=== PATIENT | female | born 1930 | race Caucasian/White ===

== ENCOUNTER 2017-01-01 22:01 | Inpatient (IN) | payer MEDICARE, OTHER ==
[~2017-01-01] VITALS: Ht 142.2 cm; Wt 36.9 kg
[2017-01-04] MEDS ORDERED: CELEXA10 MG PO (16:12)
[2017-01-04] MEDS ORDERED: ASPIRIN EC81 MG PO (16:12)
[2017-01-04] MEDS ORDERED: ELIQUIS2.5 MG PO (16:12)
[2017-01-04] MEDS ORDERED: COREG DPS6.25 MG PO (16:12)
[2017-01-04] MEDS ORDERED: PROTONIX40 MG PO (16:13)
[2017-01-04] MEDS ORDERED: IMDUR DPS30 MG PO (16:13)
[2017-01-04] MEDS ORDERED: ZESTRIL DPS2.5 MG PO (16:13)
[2017-01-04] MEDS ORDERED: CRESTOR10 MG PO (16:13)
[2017-01-04] MEDS ORDERED: XALATAN2.5 ML OU (16:13)
[2017-01-04] MEDS ORDERED: ANORO ELLIPTA 62.1 - IH (16:14)
[2017-01-04] MEDS ORDERED: DELTASONE DPS20 MG PO (16:14)
--- NOTE | 2017-01-11 09:48 | HP ---
ADMIT: 01/01/2017 RM/LOC: 410 [facility] MR#: [id number] ACC#: [id number] [address] [facility] [address] [place], [place] [address] TORY MAIER [address] [place], [place] [id number] History and Physical SEX: F AGE: 86 : 1930 DATE OF SERVICE: CHIEF COMPLAINT: Dyspnea and dizziness. HISTORY OF PRESENT ILLNESS: Ms. Maier is a very poor historian. Apparently, two weeks ago while in [place], she had some kind of an episode where she maybe felt a little dizzy or short of breath. It is unclear what exactly her symptoms were at that time. She was taken to [facility]. I do not have those records in front of me, but it sounds as if they did a pretty extensive workup and per the daughter, she was diagnosed with "broken heart." It is noted that she had a positive troponin at that time, maybe had a heart catheterization, had blockages noted between 30% and 50%. Otherwise, the patient was feeling fine and then yesterday, had another episode where she felt kind of dizzy and short of breath. Daughter notes that she normally lives by herself and the daughter had showed up yesterday. Apparently, her mom had kind of forgotten that she was even coming. She was sitting in her night gown in the living room. Notes that they had a nice day yesterday and then last night, the patient had these symptoms, they did not resolve after about 5 minutes and therefore, they brought her into the ER. She has a son who was with her on both episodes and he felt the symptoms were very similar. Otherwise, she denies any other new or different complaints. The daughter has a lot of concerns that her mom does not eat very much and really had not eaten much yesterday either. PAST MEDICAL HISTORY: Significant for: 1. Parkinson's. 2. COPD. 3. Anxiety. 4. Depression. 5. Hypertension. 6. Osteoporosis. 7. Possible diagnosis of coronary artery disease based on her recent stay at the [facility]. ALLERGIES: JOHN INHIBITORS, LIPITOR, CELEXA, ERYTHROMYCIN, FLOVENT, AND ZITHROMAX. MEDICATIONS: Currently are: 1. Eliquis 5 mg p.o. b.i.d. 2. Coreg 3.125 p.o. b.i.d. 3. Aspirin 81 mg p.o. daily. 4. Celexa 20 mg p.o. daily. 5. Isosorbide mononitrate 30 mg p.o. daily. 6. Latanoprost eye drops. 7. Lisinopril 2.5 p.o. daily. 8. Protonix 40 mg p.o. daily. 9. Crestor 10 mg p.o. at bedtime. 10.Anoro Ellipta daily. ADMIT: 01/01/2017 RM/LOC: 410 [facility] MR#: [id number] [address] [place] [id number] [facility] [address] [place] [address] History and Physical SEX: F AGE: 86 : 1930 FAMILY HISTORY: Relatively noncontributory. SOCIAL HISTORY: She does continue to smoke a pack a day. Does not use any significant alcohol. REVIEW OF SYSTEMS: Obtained, was otherwise essentially negative. PHYSICAL EXAMINATION: GENERAL: She seems very forgetful. She is in no apparent distress. HEENT: Pupils are equal, round, and reactive. Oropharynx has dry mucous membranes. NECK: Supple. HEART: Very distant, but it is a normal rate with a regular rhythm. LUNGS: Diminished breath sounds bilaterally. ABDOMEN: Soft. Bowel sounds are present. EXTREMITIES: Have no evidence of edema. ASSESSMENT AND PLAN: 1. Dyspnea with dizziness episodes with positive troponin I. At this time, we will ask Cardiology to come back but unfortunately, I do not have any records of her stay in [facility]. 2. Chronic obstructive pulmonary disease with ongoing nicotine dependence. 3. Possible malnutrition. 4. Depression. 5. Anxiety. 6. Hypertension. 7. History of Parkinson's. At this time, we will go ahead and continue her home medications. Ask Cardiology to see. Check serial cardiac enzymes. Check a pre-albumin. We will taper her off her steroids and ask Nutrition to see. I did spend 40 minutes in the evaluation and treatment of this patient. Edyta Carrillo MD/ mary lou JOB #: [id number] CC: Renan Roa, Attending Physician Renan Roa, Family Physician
--- NOTE | 2017-01-11 12:58 | DS ---
ADMIT: 01/01/2017 RM/LOC: 410 [facility] MR#: [id number] ACC#: [id number] [address] [facility] [address] [place], [place] [address] TORY IQBAL [address] [place] [address] General Discharge Summary SEX: F AGE: 86 : 1930 ADMISSION DATE: 01/01/2017 DISCHARGE DATE: 01/03/2017 FINAL DIAGNOSES: 1. Shortness of breath. 2. Chest pain. 3. Tobacco use. 4. Coronary artery disease. 5. Chronic obstructive pulmonary disease. 6. Paroxysmal atrial fibrillation. 7. History of Takotsubo syndrome. REASON FOR ADMISSION: This is an 86-year-old female, presented with shortness of breath, has history of coronary artery disease and COPD. See H and P for further details. HOSPITAL COURSE: The patient was admitted. Elevated troponin and was seen by Cardiology, was treated for COPD as well. After evaluation, they felt like she probably did not need heart cath. She was feeling very well by the 3rd. They thought she could increase her carvedilol and be discharged to home. She was started on carvedilol dose on the day of discharge. Blood pressures were followed until afternoon and they were okay, so then she was discharged to home. DISCHARGE MEDICATIONS: 1. Aspirin 81 mg daily. 2. Celexa 20 mg daily. 3. Coreg 6.25 mg b.i.d. 4. Crestor 10 mg at bedtime. 5. Imdur 30 mg daily. 6. Protonix 40 mg daily. 7. Zestril 2.5 mg daily. 8. Anoro Ellipta inhaler one b.i.d. 9. Xalatan eyedrops one drop both eyes at bedtime. 10.Eliquis 2.5 b.i.d. 11.Prednisone 40 mg daily for 5 days. Follow up with me in 1 to 2 weeks. Renan Roa MD/ mary lou JOB #: [id number] CC: Renan Roa MD, Attending Physician Renan Roa MD, Family Physician
--- NOTE | 2017-01-29 21:25 | ER ---
ADMIT: 01/01/2017 RM/LOC: ER [facility] MR#: [id number] [address] [address] TORY IQBAL [address] [place] [address] Emergency Room Report SEX: F AGE: 86 : 1930 DATE: 01/01/2017 HISTORY OF PRESENT ILLNESS: This is an 86-year-old female who comes to the Emergency Department with squad after experiencing weakness and shortness of breath times past several hours. She states she had a similar event two months ago when she was in [place] and was hospitalized and had a cardiac catheterization. She denied any chest pain. Shortness of breath came up suddenly. Denied any nausea, vomiting, or diaphoresis. PAST MEDICAL HISTORY: Emphysema, hypertension, and coronary artery disease. She states that the catheterization apparently showed 30% to 50% blockage in some of her coronary arteries. PHYSICAL EXAMINATION: GENERAL: Reveals a cachectic, ill-appearing 86-year- old female, but she is in no distress. Anxious. HEENT: Normocephalic. LUNGS: Diminished breath sounds throughout with prolonged expiration. CARDIOVASCULAR: Regular rate and rhythm. No murmurs, rubs, or gallops. ABDOMEN: Soft. EXTREMITIES: Unremarkable. Chest x-ray revealed chronic emphysematous changes. EKG, no acute changes. The cardiac markers were negative. CBC was within normal parameters. Electrolytes were essentially within normal parameters. An ABG on room air revealed pH 7.39, pCO2 of 43.3, PO2 of 70, and 94%. The patient was being admitted to rule out subjective shortness of breath. Ivan Arvizu MD/ mary lou JOB #: [id number] CC: Rich Burton MD, Attending Physician
--- NOTE | 2017-02-07 14:57 | CO ---
ADMIT: 01/01/2017 RM/LOC: 410 [facility] MR#: [id number] [address] [address] TORY MAIER [address] [place] [address] Consultation SEX: F AGE: 86 : 1930 DATE OF CONSULTATION: 01/02/2017 ATTENDING PHYSICIAN: Renan Roa CONSULTING PHYSICIAN: Roger Tracy MD REASON FOR CONSULTATION: Abnormal troponin, shortness of breath. HISTORY OF PRESENT ILLNESS: We were asked to consult on Ms. Maier at the request of Dr. Carrillo for the problem of abnormal troponin and shortness of breath. She is an 86-year-old white female, who at rest yesterday noted more dyspnea. She said she had an episode like this last month. She was actually evaluated at the [facility] with cardiac catheterization and echocardiogram. EKG at that time noted atrial fibrillation with RVR. She has been started on Eliquis. Cardiac cath yielded nonobstructive coronary disease and presumed Takotsubo cardiomyopathy on echocardiogram. She notes that she has been active since she has been home, trying to do some exercises. No change in symptoms while doing this. This occurred yesterday while she was at rest. It was random and not provoked. She denies any near syncope. She did have a little bit of lightheadedness though in retrospect, she denies any chest pressure, just shortness of breath. She denies any weight gain or weight loss, fevers, chills, cough, or cold symptoms. PAST MEDICAL HISTORY: Includes: 1. COPD. 2. Coronary artery disease. 3. Cardiomyopathy. 4. Paroxysmal atrial fibrillation. MEDICATIONS: Currently include: 1. Eliquis 5 mg b.i.d. 2. Coreg 3.125 mg b.i.d. 3. Aspirin 81 a day. 4. Celexa 20 a day. 5. Isosorbide 30 mg daily. 6. Latanoprost eye drops. 7. Lisinopril 2.5 mg every day. 8. Protonix 40 mg every day. 9. Crestor 10 mg every night. 10.Anoro Ellipta. ALLERGIES: INCLUDE FORTEO. FAMILY HISTORY: No premature coronary disease to her knowledge. SOCIAL HISTORY: She is , last year. She is a smoker. REVIEW OF SYSTEMS: A full 10-point review of systems was obtained and deemed ADMIT: 01/01/2017 RM/LOC: 410 [facility] MR#: [id number] [address] [address] TORY MAIER [address] [place] [address] Consultation SEX: F AGE: 86 : 1930 to be negative except for the pertinently dictated positives in the HPI. PHYSICAL EXAMINATION: VITAL SIGNS: Today, her blood pressure is 126/65 with a pulse of 75, temp 97.3, and her weight is 79 pounds. GENERAL: She is a malnourished-appearing white female, in no acute distress. She is alert and oriented x3. NECK: Shows brisk carotid upstrokes. No JVD or bruit. CHEST: Clear. HEART: Regular. ABDOMEN: Soft. EXTREMITIES: Show no cyanosis, clubbing, or edema. MUSCULOSKELETAL: Normal. NEUROLOGIC: Normal. SKIN: [place], warm, and dry. LABORATORY AND ANCILLARY DATA: Today EKG shows sinus rhythm with deep T-wave inversions across the lateral leads. Her creatinine is 0.6, potassium is normal. CK is normal. MB is normal. Her troponin went from 0.38 to 0.17. White blood cell count is 10.7 with a hemoglobin of 13.8, and platelet count 306,000. Her chest x-ray shows changes consistent with emphysema. No findings suggestive of heart failure or acute pneumonia. ASSESSMENT AND PLAN: 1. Dyspnea. 2. Abnormal troponin. 3. Coronary artery disease with recent cath in December of 2016 with nonobstructive coronary disease. 4. Takotsubo cardiomyopathy. 5. Tobacco use. 6. Paroxysmal atrial fibrillation. 7. Chronic obstructive pulmonary disease. I did personally review her cath, echo, and EKG. Her EKG is certainly different than her admission in December. T-waves were not deeply inverted across the precordial leads. Uncertain as to the significance of this, but nothing to suggest acute ischemia or infarction. She is maintaining sinus rhythm. We will hold her Eliquis in case she would need a repeat catheterization. We will trend her enzymes, repeat her EKG, and consider limited echocardiogram, but certainly does not sound like acute coronary syndrome at this point in time. Thank you for this consultation. Roger Tracy MD/ mary lou JOB #: [id number] CC: Renan Roa, Attending Physician ADMIT: 01/01/2017 RM/LOC: 410 [facility] MR#: [id number] [address] [place] [id number] RASHEED TORY Janey [address] [place] [address] Consultation SEX: F AGE: 86 : 1930 Renan Roa, Family Physician
[2017-04-17] MEDS ORDERED: KEFLEX-DPS500 MG PO (10:03)
[2017-04-17] MEDS ORDERED: PRESERVISION A1 EACH PO (10:03)
== END 2017-01-03 18:10 | disposition home or self-care (01) | DRG 204 ==
LOC: ER 22:01 → 4PCU 23:36
PROVIDERS: ADMIT Internal Medicine
DX: R06.00 Dyspnea, unspecified (principal); E46 Unspecified protein-calorie malnutrition; G20 Parkinson's disease; I48.0 Paroxysmal atrial fibrillation; J44.9 Chronic obstructive pulmonary disease, unspecified; I10 Essential (primary) hypertension; F32.9 Major depressive disorder, single episode, unspecified; I51.81 Takotsubo syndrome; Z68.1 Body mass index [BMI] 19.9 or less, adult; R07.9 Chest pain, unspecified; R79.89 Other specified abnormal findings of blood chemistry; I25.10 Atherosclerotic heart disease of native coronary artery without angina pectoris; F41.9 Anxiety disorder, unspecified; M81.0 Age-related osteoporosis without current pathological fracture; F17.210 Nicotine dependence, cigarettes, uncomplicated; Z79.82 Long term (current) use of aspirin

== ENCOUNTER 2017-01-23 21:12 | Emergency (ER) | payer MEDICARE, OTHER ==
[~2017-01-23 21:12] MED LIST: ANORO ELLIPTA 62.1 - IH; ASPIRIN EC81 MG PO; CELEXA10 MG PO; COREG DPS6.25 MG PO; CRESTOR10 MG PO; DELTASONE DPS20 MG PO; ELIQUIS2.5 MG PO; IMDUR DPS30 MG PO; PROTONIX40 MG PO; XALATAN2.5 ML OU; ZESTRIL DPS2.5 MG PO
--- NOTE | 2017-01-24 06:53 | ER ---
ADMIT: 01/23/2017 RM/LOC: ER [facility] MR#: [id number] [address] [address] TORY IQBAL [address] [place] [address] Emergency Room Report SEX: F AGE: 86 : 1930 DATE: 01/23/2017 The patient is an 86-year-old female with nonobstructive coronary artery disease, paroxysmal atrial fib with Takotsubo cardiomyopathy. Recent heart cath in December 2016, transported by [facility] due to shortness of breath, treated en route with DuoNeb with improvement. The patient denied any chest pain, fevers, chills, nausea, vomiting, or change in her underlying cough. Exam remarkable for debilitated elderly female with decreased breath sounds, responded well to DuoNeb, aerosol, Solu-Medrol 125 mg IV push, magnesium 2 g IV piggyback and doxycycline 100 mg p.o. in department. Home with doxycycline 100 mg p.o. daily #7, prednisone 40 mg daily x4 days starting tomorrow. Continue home medications. Follow up Dr. Roa this week. Rich Burton MD/ stonel JOB #: [id number] CC: Rich Burton MD, Attending Physician Renan Roa MD, Family Physician Renan Roa MD
[2017-04-17] MEDS ORDERED: PRESERVISION A1 EACH PO (10:03)
[2017-04-17] MEDS ORDERED: KEFLEX-DPS500 MG PO (10:03)
== END 2017-01-24 01:10 | disposition home or self-care (01) ==
LOC: ER 21:12
DX: J44.1 Chronic obstructive pulmonary disease with (acute) exacerbation (principal); I10 Essential (primary) hypertension; F17.210 Nicotine dependence, cigarettes, uncomplicated; Z88.8 Allergy status to other drugs, medicaments and biological substances; Z79.899 Other long term (current) drug therapy

== ENCOUNTER 2017-02-08 19:10 | Emergency (ER) | payer MEDICARE, OTHER ==
--- NOTE | 2017-02-09 19:08 | ER ---
ADMIT: 02/08/2017 RM/LOC: ER [facility] MR#: [id number] ACC#: [id number] [address] [address] TORY IQBAL [address] [place] [address] Emergency Room Report SEX: F AGE: 86 : 1930 DATE: 02/08/2017 HISTORY OF PRESENT ILLNESS: The patient is an 86-year-old female, with past medical history of COPD, came to the ER with chief complaint of increased shortness of breath for the last 45 minutes. The patient has a history of anxiety, hypertension, and coronary artery disease too. The patient is on no home oxygen and still is smoking one-half pack a day. EMERGENCY ROOM COURSE: In the ER, the patient was tachypneic, O2 saturation was in mid 80s per RT before starting BiPAP, the patient was afebrile, blood pressure was stable with a systolic of 105 over 80s. The patient was in mild- to-moderate respiratory distress and was started on BiPAP, on 16/8 with 6 L of oxygen. BiPAP was started and the patient's O2 saturation went to high 90s. The patient received Solu-Medrol in the ER. Chest x-ray did not show any infiltration or acute changes. EKG did not show any ST or T changes or arrhythmia. Troponin was also negative. D-dimer was also negative. WBC was 11.4 with hemoglobin of 14.6 and platelet of 279,000. Sodium was 142 with potassium of 4.2 and glucose of 156 and creatinine of 0.8. The patient was weaned from the BiPAP, RT was at bedside, O2 saturation was between 92% and 94% on room air after 10 minutes on room air. The patient can be discharged to home with prednisone for 5 days, albuterol inhaler as a rescue inhaler, Z- Jacob for outpatient [id number] COPD exacerbation and also advised on quitting smoking. Son at bedside also promised to follow up with quit smoking program under supervision of primary doctor. The patient is stable to be discharged home to be followed up by the primary doctor as needed. Chase Luna MD/ mary lou JOB #: [id number] CC: Chase Luna MD, Attending Physician Renan Roa MD, Family Physician
[2017-04-17] MEDS ORDERED: KEFLEX-DPS500 MG PO (10:03)
[2017-04-17] MEDS ORDERED: PRESERVISION A1 EACH PO (10:03)
== END 2017-02-08 22:38 | disposition home or self-care (01) ==
LOC: ER 19:10
DX: J44.1 Chronic obstructive pulmonary disease with (acute) exacerbation (principal); F41.9 Anxiety disorder, unspecified; I25.10 Atherosclerotic heart disease of native coronary artery without angina pectoris; I10 Essential (primary) hypertension; F17.210 Nicotine dependence, cigarettes, uncomplicated; F32.9 Major depressive disorder, single episode, unspecified; M81.0 Age-related osteoporosis without current pathological fracture; Z88.1 Allergy status to other antibiotic agents; Z88.8 Allergy status to other drugs, medicaments and biological substances; Z79.82 Long term (current) use of aspirin; Z79.899 Other long term (current) drug therapy; Z79.51 Long term (current) use of inhaled steroids